=== PATIENT | female | born 1965 | race Caucasian/White ===

== ENCOUNTER 2017-07-18 14:43 | Emergency (ER) | payer OTHER ==
[~2017-07-18] VITALS: Ht 162.6 cm; Wt 112.2 kg
[~2017-07-18 14:43] MED LIST: LORA1TAB PO; LOVA10TA PO; METF1000; OMPR20CCR; TRAM50TA2 PO; asa; captopril
[2017-07-18 14:52] VITALS: BP 131/65; PULSE 96; O2SAT 98
--- NOTE | 2017-07-18 15:13 | ED.REPORT ---
HPI-Head Prob / Injury Date of Service Jul 18, 2017 ED Provider: Albaro Cheung MD The pt is a 51 y/o female w/ a hx of Type 2 diabetes, MARCELLO, hyperlipidemia, GERD , and HTN presenting to the ED due to nausea onset 7 days ago. The pt hit her head a week ago while getting into her car, went to [place] for a CT, which showed she had a concussion. The pt also reports being fatigued and having a continuous headache localized to the back of her head since the incident. The headaches is described as booming, exacerbated by light, and is feeling a pressure to the L side of her head. She also reports weakness, and dizziness described as the room spinning like a tornado. The pt has not taken any medication for her symptoms today. The pt was sent here from . Nursing Notes Stated Complaint: HEADACHE Chief Complaint: Nausea Nursing Notes Reviewed: Yes (Spotzer, Karma[employer] not reconciled) Allergies: Coded Allergies: No Known Allergies (Verified , 02/18/08) Scheduled Lovastatin-Expunged Drug, Do Not Renew! (Lovastatin-Expunged Drug, Do Not Renew! ) 10 Mg Tablet 10 MG PO DAILY Scheduled PRN Lorazepam (Lorazepam) 1 Mg Tablet 1 MG PO HS PRN PRN For Insomnia Promethazine (Promethazine) 25 Mg Tablet 25 MG PO Q4H PRN PRN nausea or headache Tramadol (Tramadol) 50 Mg Tablet 100 MG PO Q6H PRN PRN For Pain Miscellaneous Medications ([asa]) ([captopril]) Metformin-Expunged Drug, Do Not Renew! (Metformin-Expunged Drug, Do Not Renew!) 1,000 Mg Tablet Omeprazole-Expunged Drug, Do Not Renew! (Omeprazole-Expunged Drug, Do Not Renew! ) 20 Mg Capsule.dr Delgado Time Seen by Provider: 15:13 Chief Complaint Other (Nausea) Hx Obtained From: Patient Arrived By: Ambulance Onset Occurred: 1 week ago Symptom Duration: Since onset Recent Healthcare: No recent hospitalization, Recent doctor visit Similar Sx Previous: Yes Past Medical History Past Medical History Notes: Dr. Pedroza Pt reports abnl CT w/concussion at [facility] 06/2017 Past Medical History Obstructive sleep apnea History of restless leg syndrome History of insomnia Depression Reports: Diabetes mellitus (2), Hyperlipidemia, Hypertension Past Surgical History ectopic Tubal ligation Reports: , Cholecystectomy Reports: Tubal ligation Smoking History Never Smoker Social History None reported Ambulatory Status Independent Review of Systems Constitutional: Reports: Fatigue GI: Reports: Nausea Neurologic: Reports: Dizziness, Headache, Weakness Complete sys rev & neg: except as marked. Physical Exam Initial Vital Signs Vital Signs (First) Date Time Temp Pulse Resp B/P Pulse Ox O2 Delivery O2 Flow Rate FiO2 07/18/17 14:52 36.9 96 131/65 98 Nasal Cannula 2 07/18/17 16:24 19 Initial VS: Reviewed, Vital signs normal Respiratory: Breath sounds normal, Clear to auscultation, No respiratory distress Cardiovascular: Regular rate & rhythm, Heart sounds normal, Intact distal pulses Extremities: Vascular intact, Neuro intact, No swelling, No tenderness Skin: Warm, Dry, No cyanosis Psychiatric: Mood/affect normal, Behavior normal, Normal thought content General/Constitutional: Awake, Alert Appearance / Presentation: Positive: Obese Fatigued Head / Eyes: Atraumatic, Normocephalic, PERRL, EOMI ENT: Atraumatic, Airway patent, Mucous membranes moist Neck: Atraumatic, Supple, Full range of motion Neurologic: Oriented X3, Speech NL Interpretation & Diagnostics Lab Results Interpretation Test 07/18/17 15:00 Hold Purple Top Tube Received (Received) Hold Blue Top Tube Received (Received) Hold Sweeny Top Tube Received (Received) Hold Ford Top Tube Received (Received) CT Head Interpretation IMPRESSION: Negative head CT. No acute intracranial hemorrhage. The need for further evaluation utilizing MRI may be determined clinically. Dictated by: Wayne Rene M.D. on 07/18/2017 at 14:49 Approved by: Wayne Rene M.D. on 07/18/2017 at 14:51 Study: Head CT no contrast Interpretation / Wet Read by: Interpret - Radiologist Re-Eval/Medical Decision Med Decision/Clinical Course This is a 51-year-old female presents sent over from urgent care for routine head CT with a worsening headache and dizziness reported head trauma week ago. He denied associated concussion with abnormal head CT, and now has worsening symptoms, with increasing headache, nausea, photophobia and dizziness. She denies focal numbness or weakness. Has a history of headaches in the very distant past, but none for many many years. Had no fever, no neck pain, no additional complaints. She describes the mechanism simply hitting her head getting into a car. Exam she is in a darkened room, she appears uncomfortable, but not in extremis. There are no focal deficits. There are no visible hematomas, repeat brain CT was negative. Patient see promethazine and Benadryl with marked improvement and resolution of the nausea, and marked improvement of the headache. She's been discharged any promethazine and Tylenol when necessary. Routine and return precautions reviewed. She is advised to follow up with her PCP. Source of Hx: Old records (requested) Re-Evaluation/Progress : Time of Eval: 17:42 Re-Evaluation/Progress Note: Pt rechecked. The headache has decreased slightly. Discussed imaging results. F/U instructions and RTER warnings given. All questions addressed. Differential Diagnosis: Positive: Blunt head trauma, Post-concussive syndrome, Negative: Basilar skull fracture, Cervical spine injury, Epidural hematoma, Gun shot wound head, Hematoma, Intracranial hemorrhage, Scalp laceration, Skull fracture, Subdural hematoma Counseled Regarding: Diagnosis, Lab results, Need for follow-up, When/why to return to ED Discharge & Departure Primary Impression: Post concussion syndrome Disposition: Home All VS Reviewed: Yes Condition: Stable Additional Instructions: 1. Your repeat CT scan was normal O signs of bruising or swelling to the brain were evident. 2. It is not uncommon after concussion have a headache, dyspnea and nausea- sometimes for a week or 2 following the injury-but symptoms are expected to improve with time 3. Take it easy. 4. Take promethazine 25mg up to every 4 hours as needed for nausea or headache ( note this medication does cause some mild drowsiness) 5. Take tylenol 1000mg up to every 4 hours for headache as needed. 6. Call for an appointment to follow up with Dr. Pedroza. Referrals: Barry Pedroza MD (PCP) Scribe Attestation Portions of this note were transcribed by Evaristo Dodd. I, Dr. Cheung personally performed the history, physical exam and medical decision-making; I reviewed and confirmed the accuracy of the information in the transcribed note. copies to: Barry Pedroza MD, Matthew F MD Jul 18, 2017 15:13 Evaristo Dodd Jul 18, 2017 15:40
[2017-07-18] MEDS ORDERED: Promethazine Inj 25 MG in Dextrose 5%-Pha MIX 50 ML IV ONE (15:35)
--- NOTE | 2017-07-18 15:52 | DRSVH ---
PROCEDURE: CT BRAIN WITHOUT CONTRAST ([id number]) INDICATIONS: recent trauma, "abnl" CT at [facility], now w/incr AYALA TECHNIQUE: Noncontrast 4.5 mm thick angled axial sections acquired from the foramen magnum to the vertex, with c oronal reformats. COMPARISON: [facility], CT, CT BRAIN WO CON, 02/22/2017, 7:08. FINDINGS: Image quality: Diagnostic. Brain: There is no acute intra-axial or extra-axial hemorrhage. No extra-axial fluid collection is i dentified. There is no midline shift or mass effect. The orbits are grossly unremarkable. No large areas of diffusely decreased attenuation are evident within the brain to suggest diffuse cer ebral edema. No focal parenchymal abnormality is identified. The ventricles and cortical sulci are age-appropriate. Bones: Calvarium and visualized facial bones are grossly intact. The imaged paranasal sinuses and m astoid air cells are clear. IMPRESSION: Negative head CT. No acute intracranial hemorrhage. The need for further evaluation uti lizing MRI may be determined clinically. Dictated by: Wayne Rene M.D. on 07/18/2017 at 14:49 Approved by: Wayne Rene M.D. on 07/18/2017 at 14:51
[2017-07-18 16:24] VITALS: BP 127/55; PULSE 90; RESP 19; O2SAT 97
[2017-07-18] MEDS ORDERED: PROM25TA14 PO (17:39)
== END 2017-07-18 17:50 | disposition home or self-care (01) ==
LOC: EDBD 14:43 → SED 14:43
DX: F07.81 Postconcussional syndrome (principal); E11.9 Type 2 diabetes mellitus without complications; I10 Essential (primary) hypertension; E78.5 Hyperlipidemia, unspecified; F32.9 Major depressive disorder, single episode, unspecified; G47.33 Obstructive sleep apnea (adult) (pediatric); K21.9 Gastro-esophageal reflux disease without esophagitis; W22.8XXA Striking against or struck by other objects, initial encounter; Y93.89 Activity, other specified; Y92.019 Unspecified place in single-family (private) house as the place of occurrence of the external cause; Y99.8 Other external cause status
CPT/HCPCS: 70450; 96374; 96375; 99284; J1200; J2550